=== PATIENT | female | born 1950 | race Caucasian/White ===

== ENCOUNTER 2017-04-22 16:20 | Emergency (ER) | payer OTHER ==
[~2017-04-22] VITALS: Ht 160 cm; Wt 88.9 kg
[~2017-04-22 16:20] MED LIST: LEVO88TA22 PO; OXYC-90 PO
[2017-04-22 16:23] VITALS: TEMP 36.9; Ht 160 cm; Wt 88.9 kg
[2017-04-22] MEDS ORDERED: SODIUM CHLORIDE 0.9% 500ML 500 ML IV STA (16:33)
[2017-04-22] MEDS ORDERED: DOCU-94 PO (16:50)
[2017-04-22] MEDS ORDERED: MOML PO (16:50)
[2017-04-22] MEDS ORDERED: ACET1TAB84 PO (16:50)
[2017-04-22] MEDS ORDERED: LEVO88TA3 PO (16:50)
[2017-04-22] MEDS ORDERED: OXYC-57 PO (16:50)
[2017-04-22] MEDS ORDERED: BISA1TAB15 PO (16:50)
[2017-04-22] MEDS ORDERED: OPTIRAY 320 IV PRN (17:00)
[2017-04-22 17:28] LABS: BASO % 0.5 %; BASO ABS # 0.04 K/uL (0-0.2); EOS % 2.9 %; EOS ABS # 0.25 K/uL (0-0.5); HEMATOCRIT 39.4 % (37-47); HEMOGLOBIN 12.9 g/dL (12.0-16.0); IG# 0.01 K/uL (0.00-0.02); LYMPH % 23.5 %; LYMPH ABS # 2.06 K/uL (1.2-3.4); MEAN CORPUSCULAR HEMOGLOBIN 32.7 pg (25-34); MEAN CORPUSCULAR HGB CONC 32.7 g/dl (32-36); MEAN PLATELET VOLUME 11.2 fL (7.4-10.4); MONO % 12.5 %; MONO ABS # 1.09 K/uL (0.11-0.59); NEUT % 60.5 %; PLATELET COUNT 217 K/uL (130-400); RED CELL DISTRIBUTION WIDTH CV 12.9 % (11.5-14.5); RED CELL DISTRIBUTION WIDTH SD 47.9 fL (36.4-46.3); WHITE BLOOD COUNT 8.75 K/uL (4.8-10.8)
--- NOTE | 2017-04-22 17:38 | EMERGENCY ROOM VISIT NOTE ---
History Report prepared by Ron: Tabitha Sylvester Under the Supervision of: Dr. Abimael Morales M.D. First contact with patient: 16:30 Chief Complaint: URINARY SYMPTOMS Stated Complaint: URINE RETENTION History of Present Illness The patient is a 66 year old female who presents to the Emergency Room with complaints of worsening urinary retention starting 5 days ago. The patient had a hemorrhoidectomy 5 days ago at [place]. She was sent to the ED after speaking with her doctor as [place]. Since her surgery, she has been unable to urinate normally. She feels like she needs to urinate, but has to push to produce any urine. She has been having some relief of her symptoms by urinating in a warm tub, but today she has passed very little urine. When she does urinate, she has some burning. She is having worsening pain at the surgical site from pushing to urinate. She denies any constipation. She has been having soft bowel movements. She denies any vomiting, fever, or chills. She is drinking fluids. Source of History: patient Onset: 5 days ago Position: other (global) Quality: other (urinary retention) Timing: worsening Modifying Factors (Relieving): other (urinating in warm tub) Associated Symptoms: No fevers, No chills, No vomiting Note: Pt reports rectal pain, burning with urination. Pt denies constipation. Review of Systems See HPI for pertinent positives & negatives. A total of 10 systems reviewed and were otherwise negative. Past Medical & Surgical Medical Problems: (1) Hemorrhoid Family History No pertinent family history stated. Social History Smoking Status: Never Smoker Marital Status: Current/Historical Medications Scheduled Docusate Sodium (Colace), 1 CAP PO TID Levothyroxine Sodium (Levothyroxine Sodium), 1 TAB PO DAILY Scheduled PRN Acetaminophen (Tylenol Arthritis Ext Rel), 650 MG PO Q8H PRN for Pain Bisacodyl (Bisacodyl), 3 TAB PO UD PRN for Constipation Magnesium Hydroxide (Milk Of Magnesia), 60 ML PO DAILY PRN for Constipation Oxycodone/Acetaminophen 5MG/325MG (Percocet 5MG/325MG), 1-2 TABLETS PO Q4-6h PRN for Pain Allergies Coded Allergies: Nabumetone (Verified Allergy, Severe, ANAPHYLAXIS, 04/22/17) Physical Exam Vital Signs Date Time Temp Pulse Resp B/P (MAP) Pulse Ox O2 Delivery O2 Flow Rate FiO2 04/22/17 18:46 74 20 146/93 99 Room Air 04/22/17 16:23 36.9 78 20 150/81 98 Room Air Physical Exam GENERAL: Patient is in no acute distress. HEENT: No acute trauma, normocephalic atraumatic, mucous membranes moist, no nasal congestion, no scleral icterus. NECK: No stridor, no adenopathy, no meningismus, trachea is midline. LUNGS: Clear to auscultation bilaterally, no wheeze, no rhonchi, breath sounds equal. HEART: Without murmurs gallops or rubs, regular rate and rhythm. ABDOMEN: Soft, nontender, bowel sounds positive, no hernias, no peritonitis. RECTAL: Rectal area appears consistent with recent hemorrhoid surgery. No bleeding. No signs of cellulitis or infection. EXTREMITIES: No cyanosis or edema, full range of motion of all the joints without pain or difficulty, no signs for acute trauma. NEUROLOGIC: Oriented x 3, no acute motor or sensory deficits, no focal weakness. SKIN: No rash, no jaundice, no diaphoresis. Medical Decision & Procedures ER Provider Diagnostic Interpretation: Radiology results as stated below per my review and radiologist interpretation: CT SCAN OF THE ABDOMEN AND PELVIS WITH IV CONTRAST CLINICAL HISTORY: Generalized abdominal pain. Hemorrhoids surgery. COMPARISON STUDY: No priors. TECHNIQUE: Following the IV administration of 92 cc of Optiray 320, CT scan of the abdomen and pelvis is performed from the lung bases to the proximal femora. Images are reviewed in the axial, sagittal, and coronal planes. IV contrast was administered without complication. A dose lowering technique was utilized adhering to the principles of ALARA. CT DOSE: 940.35 mGy.cm FINDINGS: Lung bases: The heart is normal in size and without pericardial effusion. The lung bases are clear noting dependent atelectasis. Liver: The contrast-enhanced liver is normal in size, contour, and attenuation. There is no intrahepatic biliary ductal dilatation. The hepatic veins and portal veins are patent. A subcentimeter hepatic hypodensity seen on image #108 likely represents a cyst but is too small for definitive characterization. Gallbladder: Unremarkable. Spleen: Normal in size and attenuation. Pancreas: Moderately atrophic and grossly unremarkable. Adrenal glands: Unremarkable. Kidneys: The contrast enhanced kidneys demonstrate cortical atrophy and are without hydronephrosis. Small extrarenal pelvises are noted bilaterally. The kidneys enhance symmetrically. Abdominal vasculature: The abdominal aorta is normal in course and caliber. Bowel: There is moderate colonic fecal retention. No bowel obstruction is seen. There is mild rectal wall thickening with perirectal inflammation. Prominent perirectal lymph nodes measure up to 7 mm. Mild perianal induration is also identified. No organized fluid collection is clearly seen. The appendix is well-visualized and normal. Peritoneum: There is no intraperitoneal free air or abdominal ascites. There is a fat-containing umbilical hernia. Lymphadenopathy: There are shotty subcentimeter retroperitoneal and iliac chain lymph nodes. These are not pathologically enlarged by size criteria. Pelvic viscera: The bladder is partially decompressed around a Colin catheter. Foci of luminal gas are likely related to instrumentation. Uterus and adnexa are normal as visualized. Findings suggest pelvic floor prolapse. Skeletal structures: The skeletal structures are osteopenic. Mild lumbosacral spondylosis is observed. No lytic or blastic lesions are seen. IMPRESSION: 1. Mild wall thickening is seen involving the lower rectum. There is mild perirectal stranding and prominent perirectal lymph nodes. This may be on a postoperative basis. Correlate clinically for evidence of mild proctitis. 2. Mild stranding is also seen in the perianal soft tissues. This may be related to the reported history of recent hemorrhoid surgery. Superimposed infection would the impossible to exclude. Clinical correlation will be required. No organized fluid collection is seen to indicate abscess. 3. Moderate constipation. 4. Additional findings as above. Electronically signed by: Abimael Robertson M.D. 04/22/2017 6:58 PM Dictated Date/Time: 04/22/2017 6:52 PM Laboratory Results 04/22/17 17:10 Red Blood Count 3.94, Mean Corpuscular Volume 100.0, Mean Corpuscular Hemoglobin 32.7, Mean Corpuscular Hemoglobin Concent 32.7, Mean Platelet Volume 11.2, Neutrophils (%) (Auto) 60.5, Lymphocytes (%) (Auto) 23.5, Monocytes (%) ( Auto) 12.5, Eosinophils (%) (Auto) 2.9, Basophils (%) (Auto) 0.5, Neutrophils # (Auto) 5.30, Lymphocytes # (Auto) 2.06, Monocytes # (Auto) 1.09, Eosinophils # ( Auto) 0.25, Basophils # (Auto) 0.04 04/22/17 17:10 Test 04/22/17 17:10 04/22/17 17:15 White Blood Count 8.75 K/uL (4.8-10.8) Red Blood Count 3.94 M/uL (4.2-5.4) Hemoglobin 12.9 g/dL (12.0-16.0) Hematocrit 39.4 % (37-47) Mean Corpuscular Volume 100.0 fL (80-100) Mean Corpuscular Hemoglobin 32.7 pg (25-34) Mean Corpuscular Hemoglobin Concent 32.7 g/dl (32-36) Platelet Count 217 K/uL (130-400) Mean Platelet Volume 11.2 fL (7.4-10.4) Neutrophils (%) (Auto) 60.5 % Lymphocytes (%) (Auto) 23.5 % Monocytes (%) (Auto) 12.5 % Eosinophils (%) (Auto) 2.9 % Basophils (%) (Auto) 0.5 % Neutrophils # (Auto) 5.30 K/uL (1.4-6.5) Lymphocytes # (Auto) 2.06 K/uL (1.2-3.4) Monocytes # (Auto) 1.09 K/uL (0.11-0.59) Eosinophils # (Auto) 0.25 K/uL (0-0.5) Basophils # (Auto) 0.04 K/uL (0-0.2) RDW Standard Deviation 47.9 fL (36.4-46.3) RDW Coefficient of Variation 12.9 % (11.5-14.5) Immature Granulocyte % (Auto) 0.1 % Immature Granulocyte # (Auto) 0.01 K/uL (0.00-0.02) Anion Gap 3.0 mmol/L (3-11) Est Creatinine Clear Calc Drug Dose 68.7 ml/min Estimated GFR () 83.4 Estimated GFR (Non- 71.9 BUN/Creatinine Ratio 15.4 (10-20) Calcium Level 8.5 mg/dl (8.5-10.1) Total Bilirubin 0.5 mg/dl (0.2-1) Aspartate Amino Transf (AST/SGOT) 28 U/L (15-37) Alanine Aminotransferase (ALT/SGPT) 36 U/L (12-78) Alkaline Phosphatase 95 U/L (45-117) Total Protein 7.2 gm/dl (6.4-8.2) Albumin 3.3 gm/dl (3.4-5.0) Globulin 3.9 gm/dl (2.5-4.0) Albumin/Globulin Ratio 0.8 (0.9-2) Lipase 72 U/L (73-393) Chemistry Specimen Hemolysis Urine Color YELLOW Urine Appearance CLEAR (CLEAR) Urine pH 8.0 (4.5-7.5) Urine Specific [place] 1.017 (1.000-1.030) Urine Protein NEG (NEG) Urine Glucose (UA) NEG (NEG) Urine Ketones NEG (NEG) Urine Occult Blood NEG (NEG) Urine Nitrite NEG (NEG) Urine Bilirubin NEG (NEG) Urine Urobilinogen NEG (NEG) Urine Leukocyte Esterase NEG (NEG) Laboratory results reviewed by me. Medications Administered Medications (Trade) Dose Ordered Sig/Lio Route Start Time Stop Time Status Last Admin Dose Admin Sodium Chloride 500 ml @ 999 mls/hr Q31M STAT IV 04/22/17 16:33 04/22/17 17:03 DC 04/22/17 18:48 999 MLS/HR ED Course 1631: The patient was evaluated in room B6. A complete history and physical exam was performed. 1633: NSS 500 ml @ 999 mls/hr IV. 180: I reevaluated the patient. I updated her on the results. Colin catheter drained 600 ccs of urine. She feels improved. 1914: Oxycodone HCl 1 homepack PO. 9: I reevaluated the patient. I discussed results and discharge instructions : she verbalized understanding and agreement. The patient is ready for discharge. Medical Decision Differential diagnoses considered include urinary retention, UTI, abscess, surgical complication, dehydration, electrolyte imbalance, cellulitis. There is no leukocytosis or concerning anemia. No significant electrolyte abnormality, kidney failure or hepatitis. There is no pancreatitis. Urinalysis does not show evidence for infection. Abdominal and pelvis CT shows some inflammation to the anal and rectal area consistent with her recent surgery , no drainable abscess. Constipation was noted. Clinically, there was no cellulitis or concerning discharge. The patient had a Colin catheter placed and drained 600 mL of urine, she was retaining. The patient received IV saline, she is doing well. She is not toxic or febrile. She is being discharged with a few oxycodone for severe pain. She will add Senokot or Miralax to her bowel regimen to help with constipation. She will contact urology for an appointment this week to possibly remove the Colin catheter. I suspect the urinary retention is secondary to her recent surgery coupled with her constipation. The patient was encouraged to return to this ER for any worsening symptoms, fever or vomiting. [place] Drug Monitoring Program Search Results: patient reviewed within database Drug Monitoring Findings: Patient had a prescription from Dr. Murphy on April 17 for 30 oxycodone. Medication Reconcilliation Current Medication List: was personally reviewed by me Blood Pressure Screening Patient's blood pressure: Elevated blood pressure Blood pressure disposition: Elevated BP felt to be situational Impression Primary Impression: Urinary retention Additional Impressions: Constipation S/P hemorrhoidectomy Scribe Attestation The scribe's documentation has been prepared under my direction and personally reviewed by me in its entirety. I confirm that the note above accurately reflects all work, treatment, procedures, and medical decision making performed by me. Departure Information Dispostion Home / Self-Care Referrals Lauro Pearl M.D. (PCP) Balwinder Glasgow MD, Urology Forms HOME CARE DOCUMENTATION FORM, IMPORTANT VISIT INFORMATION Patient Instructions My [facility] [email or web address] Additional Instructions stay well hydrated add Senokot to help with bowel movements--2 tab 2x per day oxy ir 1 tab every 4 hours for severe pain talk with nash santoyo tomorrow for a referral to urology for the catheter removal return for fever or worsening symptoms lab testing today was all ok Problem Qualifiers
[2017-04-22 17:56] LABS: ALBUMIN 3.3 gm/dl (3.4-5.0); CALCIUM 8.5 mg/dl (8.5-10.1); CREATININE 0.84 mg/dl (0.60-1.20); POTASSIUM 4.4 mmol/L (3.5-5.1); TOTAL PROTEIN 7.2 gm/dl (6.4-8.2)
[2017-04-22 18:46] VITALS: BP 146/93; PULSE 74; O2SAT 99
--- NOTE | 2017-04-22 19:00 | DIAGNOSTIC IMAGING REPORT ---
CT SCAN OF THE ABDOMEN AND PELVIS WITH IV CONTRAST CLINICAL HISTORY: Generalized abdominal pain. Hemorrhoids surgery. COMPARISON STUDY: No priors. TECHNIQUE: Following the IV administration of 92 cc of Optiray 320, CT scan of the abdomen and pelvis is performed from the lung bases to the proximal femora. Images are reviewed in the axial, sagittal, and coronal planes. IV contrast was administered without complication. A dose lowering technique was utilized adhering to the principles of ALARA. CT DOSE: 940.35 mGy.cm FINDINGS: Lung bases: The heart is normal in size and without pericardial effusion. The lung bases are clear noting dependent atelectasis. Liver: The contrast-enhanced liver is normal in size, contour, and attenuation. There is no intrahepatic biliary ductal dilatation. The hepatic veins and portal veins are patent. A subcentimeter hepatic hypodensity seen on image #108 likely represents a cyst but is too small for definitive characterization. Gallbladder: Unremarkable. Spleen: Normal in size and attenuation. Pancreas: Moderately atrophic and grossly unremarkable. Adrenal glands: Unremarkable. Kidneys: The contrast enhanced kidneys demonstrate cortical atrophy and are without hydronephrosis. Small extrarenal pelvises are noted bilaterally. The kidneys enhance symmetrically. Abdominal vasculature: The abdominal aorta is normal in course and caliber. Bowel: There is moderate colonic fecal retention. No bowel obstruction is seen. There is mild rectal wall thickening with perirectal inflammation. Prominent perirectal lymph nodes measure up to 7 mm. Mild perianal induration is also identified. No organized fluid collection is clearly seen. The appendix is well-visualized and normal. Peritoneum: There is no intraperitoneal free air or abdominal ascites. There is a fat-containing umbilical hernia. Lymphadenopathy: There are shotty subcentimeter retroperitoneal and iliac chain lymph nodes. These are not pathologically enlarged by size criteria. Pelvic viscera: The bladder is partially decompressed around a Colin catheter. Foci of luminal gas are likely related to instrumentation. Uterus and adnexa are normal as visualized. Findings suggest pelvic floor prolapse. Skeletal structures: The skeletal structures are osteopenic. Mild lumbosacral spondylosis is observed. No lytic or blastic lesions are seen. IMPRESSION: 1. Mild wall thickening is seen involving the lower rectum. There is mild perirectal stranding and prominent perirectal lymph nodes. This may be on a postoperative basis. Correlate clinically for evidence of mild proctitis. 2. Mild stranding is also seen in the perianal soft tissues. This may be related to the reported history of recent hemorrhoid surgery. Superimposed infection would the impossible to exclude. Clinical correlation will be required. No organized fluid collection is seen to indicate abscess. 3. Moderate constipation. 4. Additional findings as above. Electronically signed by: Abimael Robertson M.D. 04/22/2017 6:58 PM Dictated Date/Time: 04/22/2017 6:52 PM
[2017-04-22] MEDS ORDERED: OXYCODONE IR HOME PACK PO ONE (19:15)
== END 2017-04-22 20:24 | disposition home or self-care (01) ==
LOC: C.EDB 16:21
DX: R33.9 Retention of urine, unspecified (principal); K59.00 Constipation, unspecified; Z98.890 Other specified postprocedural states